=== PATIENT | female | born 1980 | race Two or more races ===

== ENCOUNTER 2021-06-07 21:23 | Emergency (ER) | payer MEDICAID ==
[~2021-06-07] VITALS: Ht 162.6 cm; Wt 72.7 kg
[2021-06-07 23:11] LABS: AMPHET/METH SCREEN,URINE POSITIVE (NEGATIVE); BARBITURATE SCREEN, URINE NEGATIVE (NEGATIVE); BENZODIAZEPINES SCREEN,URINE NEGATIVE (NEGATIVE); CANNABINOID SCREEN,URINE NEGATIVE (NEGATIVE); COCAINE SCREEN,URINE NEGATIVE (NEGATIVE); METHADONE SCREEN, URINE NEGATIVE (NEGATIVE); OPIATE SCREEN,URINE NEGATIVE (NEGATIVE); PHENCYCLIDINE SCREEN,URINE NEGATIVE (NEGATIVE)
[2021-06-08 01:36] VITALS: BP 110/75
== END 2021-06-08 01:50 | disposition home or self-care (01) ==
LOC: EMS 21:30
DX: S00.03XA Contusion of scalp, initial encounter (principal); F17.210 Nicotine dependence, cigarettes, uncomplicated; F12.90 Cannabis use, unspecified, uncomplicated; F19.90 Other psychoactive substance use, unspecified, uncomplicated; Y04.2XXA Assault by strike against or bumped into by another person, initial encounter; Y93.89 Activity, other specified; Y92.89 Other specified places as the place of occurrence of the external cause; Y99.8 Other external cause status
CPT/HCPCS: 70450; 72125; 84703; 99284

== ENCOUNTER 2022-05-22 21:33 | Emergency (ER) | payer MEDICAID ==
[~2022-05-22] VITALS: Ht 167.6 cm; Wt 55.0 kg
[2022-05-22 23:23] LABS: BASOPHILS % (AUTO) 0.5 % (0.0-2.0); EOSINOPHILS % (AUTO) 1.6 % (1.0-6.0); HEMATOCRIT 38.7 % (36-46); HEMOGLOBIN 12.6 g/dL (12.0-16.0); LYMPHOCYTES # (AUTO) 2.5 K/uL (1.0-4.8); LYMPHOCYTES % (AUTO) 27.7 % (22.0-44.0); MEAN CORPUSCULAR HEMOGLOBIN 28.4 pg (26.0-34.0); MEAN CORPUSCULAR HGB CONC 32.4 G/dL (31.0-37.0); MEAN CORPUSCULAR VOLUME 88 fL (80-100); MONOCYTES # (AUTO) 0.6 K/uL (0.1-1.0); MONOCYTES % (AUTO) 6.3 % (2.0-9.0); NEUTROPHILS # (AUTO) 5.7 K/uL (1.8-7.7); NEUTROPHILS % (AUTO) 63.9 % (40.0-70.0); PLATELET COUNT (AUTO) 395 K/uL (150-450); RED BLOOD CELL COUNT(AUTO) 4.41 MIL/uL (4.00-5.20); RED CELL DISTRIBUTION WIDTH 14.6 % (11.5-14.5)
[2022-05-22 23:32] LABS: ANION GAP 4 mmol/L (8-16); CARBON DIOXIDE 33 mmol/L (22-29); CHLORIDE 103 mmol/L (98-107); CREATININE 1.09 mg/dL (0.60-1.30); GLUCOSE,RANDOM 91 mg/dL (70-110); POTASSIUM 3.4 mmol/L (3.5-5.1); SODIUM SERUM 140 mmol/L (136-145); UREA NITROGEN, BLOOD 15 mg/dL (7-18)
[2022-05-22 23:33] LABS: GLOMERULAR FILTR. RATE CALC 55 mL/min (>60)
[2022-05-22 23:34] LABS: AMPHET/METH SCREEN,URINE NEGATIVE (NEGATIVE); BARBITURATE SCREEN, URINE NEGATIVE (NEGATIVE); BENZODIAZEPINES SCREEN,URINE NEGATIVE (NEGATIVE); CANNABINOID SCREEN,URINE NEGATIVE (NEGATIVE); COCAINE SCREEN,URINE NEGATIVE (NEGATIVE); METHADONE SCREEN, URINE NEGATIVE (NEGATIVE); OPIATE SCREEN,URINE NEGATIVE (NEGATIVE)
[2022-05-22 23:35] LABS: PHENCYCLIDINE SCREEN,URINE NEGATIVE (NEGATIVE)
[2022-05-22 23:37] LABS: ALANINE AMINOTRANSFERASE 26 U/L (12-78); ALBUMIN 3.4 g/dL (3.4-5.0); ALKALINE PHOSPHATASE 155 U/L (46-116); ASPARTATE AMINOTRANSFERASE 21 U/L (15-37); BILIRUBIN,TOTAL 0.1 mg/dL (0.1-1.0); TOTAL PROTEIN, SERUM 8.3 g/dL (6.4-8.2)
[2022-05-23 05:53] VITALS: BP 124/82
== END 2022-05-23 06:09 | disposition home or self-care (01) ==
LOC: EMS 21:33
DX: R45.1 Restlessness and agitation (principal); F32.A Depression, unspecified; F17.210 Nicotine dependence, cigarettes, uncomplicated; F12.90 Cannabis use, unspecified, uncomplicated; F15.90 Other stimulant use, unspecified, uncomplicated; F10.90 Alcohol use, unspecified, uncomplicated; M41.9 Scoliosis, unspecified
CPT/HCPCS: 99285; 80053; 84703; 85025; 36415; 80307 ×2; G0480

== ENCOUNTER 2022-10-01 08:40 | Inpatient (IN) | payer MEDICAID ==
[~2022-10-01] VITALS: Ht 160 cm; Wt 58.3 kg
[2022-10-01] MEDS ORDERED: LORazepam 2 MG/ML VIAL IM ONE (12:30)
[2022-10-01] MEDS ORDERED: DiphenhydrAMINE HCL 50 MG/ML VIAL IM ONE (12:30)
[2022-10-01] MEDS ORDERED: HALOPERIDOL LACTATE 5 MG/ML VIAL IM ONE (12:30)
[2022-10-01] MEDS ORDERED: ZOLPIDEM TARTRATE 10 MG TABLET PO PRN (13:00)
[2022-10-01] MEDS ORDERED: LORazepam 2 MG TABLET PO PRN (13:00)
[2022-10-01] MEDS ORDERED: HALOPERIDOL 5 MG TABLET PO PRN (13:00)
[2022-10-01 13:13] LABS: COVID AG,FIA SOURCE NASAL SWAB
[2022-10-01 14:04] LABS: BASOPHILS % (AUTO) 0.9 % (0.0-2.0); EOSINOPHILS % (AUTO) 0.4 % (1.0-6.0); HEMOGLOBIN 12.2 g/dL (12.0-16.0); LYMPHOCYTES # (AUTO) 3.3 K/uL (1.0-4.8); LYMPHOCYTES % (AUTO) 21.9 % (22.0-44.0); MEAN CORPUSCULAR HEMOGLOBIN 28.7 pg (26.0-34.0); MEAN CORPUSCULAR HGB CONC 33.1 G/dL (31.0-37.0); MEAN CORPUSCULAR VOLUME 87 fL (80-100); MONOCYTES # (AUTO) 1.1 K/uL (0.1-1.0); MONOCYTES % (AUTO) 7.5 % (2.0-9.0); NEUTROPHILS # (AUTO) 10.3 K/uL (1.8-7.7); NEUTROPHILS % (AUTO) 69.3 % (40.0-70.0); PLATELET COUNT (AUTO) 384 K/uL (150-450); RED BLOOD CELL COUNT(AUTO) 4.26 MIL/uL (4.00-5.20); RED CELL DISTRIBUTION WIDTH 15.4 % (11.5-14.5)
[2022-10-01 14:14] LABS: ANION GAP 3 mmol/L (8-16); CALCIUM, TOTAL 8.8 mg/dL (8.8-10.5); CARBON DIOXIDE 28 mmol/L (22-29); CHLORIDE 102 mmol/L (98-107); CREATININE 0.84 mg/dL (0.60-1.30); GLOMERULAR FILTR. RATE CALC > 60 mL/min (>60); GLUCOSE,RANDOM 72 mg/dL (70-110); POTASSIUM 3.8 mmol/L (3.5-5.1); SODIUM SERUM 133 mmol/L (136-145)
[2022-10-01 14:20] LABS: ALANINE AMINOTRANSFERASE 49 U/L (12-78); ALBUMIN 3.7 g/dL (3.4-5.0); ALKALINE PHOSPHATASE 142 U/L (46-116); ASPARTATE AMINOTRANSFERASE 71 U/L (15-37); BILIRUBIN,TOTAL 1.1 mg/dL (0.1-1.0); TOTAL PROTEIN, SERUM 7.9 g/dL (6.4-8.2)
[2022-10-01 18:11] VITALS: BP 94/58; PULSE 94; RESP 16; TEMP 97.6; O2SAT 98
[2022-10-01] MEDS ORDERED: PNEUMOCOCCAL VACCINE POLYVALENT 0.5 ML VIAL [PPSV23] IM. ONE (18:30)
[2022-10-01 20:02] VITALS: BP 102/76; PULSE 92; RESP 18; TEMP 97.1; O2SAT 97
[2022-10-02 08:33] VITALS: BP 93/53; PULSE 95; RESP 17; TEMP 98; O2SAT 96
[2022-10-02] MEDS: ESCITALOPRAM OXALATE 10 MG TABLET PO SCH (12:45)
[2022-10-02] MEDS ORDERED: DOCUSATE SODIUM 100 MG CAPSULE PO PRN (15:45)
[2022-10-02] MEDS ORDERED: LOPERAMIDE HCL 2 MG CAPSULE PO PRN (15:45)
[2022-10-02] MEDS ORDERED: ALBUTEROL SULFATE HFA 90 MCG/PUFF 8 GM INHALER IH PRN (15:45)
[2022-10-02] MEDS ORDERED: MAGNESIUM HYDROXIDE SUSPENSION 30 ML UDCUP PO PRN (15:45)
[2022-10-02] MEDS ORDERED: GuaiFENesin/D-METHORPHAN [SUGAR-FREE] 200-20MG/10 ML SYRUP UDCUP PO PRN (15:45)
[2022-10-02] MEDS ORDERED: PETROLATUM,WHITE 28 GM JELLY TP PRN (15:45)
[2022-10-02] MEDS ORDERED: CloNIDine HCL 0.1 MG TABLET PO PRN (15:45)
[2022-10-02] MEDS ORDERED: MAG HYDROX/AL HYDROX/SIMETH ES 30 ML SUSPENSION UDCUP PO PRN (15:45)
[2022-10-02] MEDS ORDERED: ACETAMINOPHEN 325 MG TABLET PO PRN (15:45)
[2022-10-02] MEDS ORDERED: ONDANSETRON HCL 4 MG TABLET PO PRN (15:45)
[2022-10-02] MEDS ORDERED: NICOTINE 14 MG/24 HOUR PATCH TD PRN (15:45)
[2022-10-02] MEDS: QUEtiapine FUMARATE 25 MG TABLET PO SCH (16:33)
[2022-10-02 20:42] VITALS: RESP 18
[2022-10-03 08:30] VITALS: RESP 18; TEMP 97.8
[2022-10-03] MEDS: QUEtiapine FUMARATE 25 MG TABLET PO SCH ×2 (09:41→16:44)
[2022-10-03] MEDS: ESCITALOPRAM OXALATE 10 MG TABLET PO SCH (09:41)
[2022-10-03 20:23] VITALS: BP 116/72; PULSE 76; RESP 18; TEMP 98.1
[2022-10-04] MEDS: ESCITALOPRAM OXALATE 10 MG TABLET PO SCH (08:34)
[2022-10-04] MEDS: QUEtiapine FUMARATE 25 MG TABLET PO SCH ×2 (08:34→17:15)
[2022-10-04 10:10] VITALS: BP 106/67; PULSE 87; RESP 16; TEMP 97.1; O2SAT 97
[2022-10-04 20:09] VITALS: BP 100/69; PULSE 79; RESP 18; TEMP 97.3; O2SAT 95
[2022-10-05] MEDS: ESCITALOPRAM OXALATE 10 MG TABLET PO SCH (08:16)
[2022-10-05] MEDS: QUEtiapine FUMARATE 25 MG TABLET PO SCH ×2 (08:16→16:38)
[2022-10-05 08:52] LABS: BASOPHILS % (AUTO) 0.7 % (0.0-2.0); EOSINOPHILS % (AUTO) 2.8 % (1.0-6.0); HEMATOCRIT 40.7 % (36-46); LYMPHOCYTES # (AUTO) 1.8 K/uL (1.0-4.8); LYMPHOCYTES % (AUTO) 23.5 % (22.0-44.0); MEAN CORPUSCULAR VOLUME 88 fL (80-100); MONOCYTES # (AUTO) 0.4 K/uL (0.1-1.0); MONOCYTES % (AUTO) 4.6 % (2.0-9.0); NEUTROPHILS # (AUTO) 5.2 K/uL (1.8-7.7); NEUTROPHILS % (AUTO) 68.4 % (40.0-70.0); PLATELET COUNT (AUTO) 412 K/uL (150-450); RED BLOOD CELL COUNT(AUTO) 4.65 MIL/uL (4.00-5.20); RED CELL DISTRIBUTION WIDTH 15.5 % (11.5-14.5)
[2022-10-05 09:32] VITALS: BP 100/61; PULSE 76; RESP 18; TEMP 94.7; O2SAT 98
[2022-10-05 21:33] VITALS: BP 118/72; PULSE 80; RESP 17; TEMP 97.2; O2SAT 99
[2022-10-06] MEDS: QUEtiapine FUMARATE 25 MG TABLET PO SCH ×2 (08:40→16:36)
[2022-10-06] MEDS: ESCITALOPRAM OXALATE 10 MG TABLET PO SCH (08:40)
[2022-10-06 08:43] VITALS: BP 103/68; PULSE 70; RESP 18; TEMP 98
[2022-10-06] MEDS: IBUPROFEN 400 MG TABLET PO PRN ×2 (08:43→17:30)
[2022-10-06 08:49] VITALS: BP 103/68; PULSE 70; RESP 18; TEMP 98; O2SAT 98
[2022-10-06 09:43] VITALS: BP 111/71; PULSE 76; RESP 17; TEMP 98.2
[2022-10-06 17:30] VITALS: BP 131/77; PULSE 81; RESP 17; TEMP 98.3
[2022-10-06 18:30] VITALS: BP 121/78; PULSE 71; RESP 18; TEMP 98
[2022-10-06 20:30] VITALS: BP 120/70; PULSE 80; RESP 18; TEMP 97.7
[2022-10-07 08:24] VITALS: BP 103/63; PULSE 61; RESP 18; TEMP 97.7
[2022-10-07] MEDS: ESCITALOPRAM OXALATE 10 MG TABLET PO SCH (09:07)
[2022-10-07] MEDS: QUEtiapine FUMARATE 25 MG TABLET PO SCH ×2 (09:07→16:09)
[2022-10-07] MEDS: IBUPROFEN 400 MG TABLET PO PRN (16:12)
[2022-10-07 21:34] VITALS: BP 118/71; PULSE 72; RESP 18; TEMP 98
[2022-10-08 08:45] VITALS: BP 99/62; PULSE 68; RESP 17; TEMP 97.6; O2SAT 96
[2022-10-08] MEDS: QUEtiapine FUMARATE 25 MG TABLET PO SCH ×2 (09:24→16:33)
[2022-10-08] MEDS: MULTIVITAMINS WITH MINERALS, THERAPEUTIC TABLET PO SCH (09:24)
[2022-10-08] MEDS: ESCITALOPRAM OXALATE 10 MG TABLET PO SCH (09:24)
[2022-10-08 21:05] VITALS: BP 108/71; PULSE 73; RESP 19; TEMP 98.1; O2SAT 98
[2022-10-09] MEDS: QUEtiapine FUMARATE 25 MG TABLET PO SCH ×2 (08:19→16:01)
[2022-10-09] MEDS: ESCITALOPRAM OXALATE 10 MG TABLET PO SCH (08:19)
[2022-10-09] MEDS: MULTIVITAMINS WITH MINERALS, THERAPEUTIC TABLET PO SCH (08:19)
[2022-10-09 08:29] VITALS: BP 106/65; PULSE 77; RESP 16; TEMP 97.4; O2SAT 98
[2022-10-09 10:32] VITALS: BP 106/65; PULSE 77; RESP 16; TEMP 97.4
[2022-10-09] MEDS: IBUPROFEN 400 MG TABLET PO PRN (10:32)
[2022-10-09 11:32] VITALS: BP 111/71; PULSE 81; RESP 17; TEMP 98
[2022-10-09] MEDS ORDERED: QUET25TA36 PO (11:42)
[2022-10-09] MEDS ORDERED: ESCI10 PO (11:42)
== END 2022-10-09 15:45 | disposition left against medical advice (07) | DRG 750 ==
LOC: EMS 08:45 → 3EC 17:16
PROVIDERS: ADMIT Psychiatry & Neurology Child & Adolescent Psychiatry; ATTEND Psychiatry & Neurology Child & Adolescent Psychiatry
DX: F20.0 Paranoid schizophrenia (principal); E87.1 Hypo-osmolality and hyponatremia; F32.A Depression, unspecified; Z20.822 Contact with and (suspected) exposure to COVID-19; G47.00 Insomnia, unspecified; M41.9 Scoliosis, unspecified; D72.829 Elevated white blood cell count, unspecified; Z53.21 Procedure and treatment not carried out due to patient leaving prior to being seen by health care provider; F19.10 Other psychoactive substance abuse, uncomplicated; Z87.891 Personal history of nicotine dependence
CPT/HCPCS: 80053; 85025; 87430; 99285; G0480; J1200; J1630; J2060; J3535

== ENCOUNTER 2023-01-07 11:56 | Emergency (ER) | payer MEDICAID ==
[~2023-01-07] VITALS: Ht 162.6 cm; Wt 59.1 kg
[~2023-01-07 11:56] MED LIST: ESCI10 PO; QUET25TA36 PO
[2023-01-07 12:03] VITALS: TEMP 97.9
[2023-01-07] MEDS ORDERED: SODIUM CHLORIDE 0.9% 1,000 ML IV ONE (12:45)
[2023-01-07 13:33] LABS: BASOPHILS % (AUTO) 0.6 % (0.0-2.0); HEMATOCRIT 41.8 % (36-46); HEMOGLOBIN 13.8 g/dL (12.0-16.0); LYMPHOCYTES % (AUTO) 29.7 % (22.0-44.0); MEAN CORPUSCULAR VOLUME 88 fL (80-100); MONOCYTES # (AUTO) 0.6 K/uL (0.1-1.0); MONOCYTES % (AUTO) 6.1 % (2.0-9.0); NEUTROPHILS # (AUTO) 6.2 K/uL (1.8-7.7); NEUTROPHILS % (AUTO) 62.6 % (40.0-70.0); PLATELET COUNT (AUTO) 371 K/uL (150-450); RED BLOOD CELL COUNT(AUTO) 4.75 MIL/uL (4.00-5.20)
[2023-01-07 13:45] LABS: ANION GAP 7 mmol/L (8-16); CALCIUM, TOTAL 9.1 mg/dL (8.8-10.5); CARBON DIOXIDE 28 mmol/L (22-29); CHLORIDE 104 mmol/L (98-107); CREATININE 0.89 mg/dL (0.60-1.30); GLOMERULAR FILTR. RATE CALC > 60 mL/min (>60); GLUCOSE,RANDOM 76 mg/dL (70-110); PROTHROMBIN TIME 10.5 SEC (9.4-11.6); SODIUM SERUM 139 mmol/L (136-145); UREA NITROGEN, BLOOD 20 mg/dL (7-18)
[2023-01-07 13:51] LABS: ALANINE AMINOTRANSFERASE 16 U/L (12-78); ALBUMIN 3.5 g/dL (3.4-5.0); ALKALINE PHOSPHATASE 151 U/L (46-116); ASPARTATE AMINOTRANSFERASE 21 U/L (15-37); BILIRUBIN,TOTAL 0.5 mg/dL (0.1-1.0); TOTAL PROTEIN, SERUM 7.6 g/dL (6.4-8.2)
[2023-01-07 13:55] LABS: B-TYPE NATRIURETIC PEPTIDE 37 pg/mL (0-100)
[2023-01-07 13:56] LABS: TROPONIN I-HIGH SENSITIVITY Less Than 4 ng/L (<51)
[2023-01-07 16:28] LABS: APPEARANCE,URINE CLEAR (CLEAR); BILIRUBIN,URINE NEGATIVE (NEGATIVE); COLOR,URINE LIGHT YELLOW (YELLOW); GLUCOSE, URINE (UA) NEGATIVE (NEGATIVE); KETONES,URINE NEGATIVE (NEGATIVE); LEUKOCYTE ESTERASE ,URINE NEGATIVE (NEGATIVE); NITRATE,URINE NEGATIVE (NEGATIVE); OCCULT BLOOD,URINE NEGATIVE (NEGATIVE); PROTEIN,URINE NEGATIVE (NEGATIVE); SPECIFIC GRAVITIY, URINE 1.018 (1.003-1.030); UROBILINOGEN,URINE <=1.0 mg/dL (<=1.0)
[2023-01-07] MEDS ORDERED: ESCI-8 PO (16:34)
[2023-01-07] MEDS ORDERED: QUET25TA PO (16:34)
[2023-01-07] MEDS ORDERED: HYDR28.35 TP (16:35)
[2023-01-07 16:41] LABS: ALCOHOL, URINE DRUG SCREEN NEGATIVE (NEGATIVE); AMPHET/METH SCREEN,URINE NEGATIVE (NEGATIVE); BARBITURATE SCREEN, URINE NEGATIVE (NEGATIVE); BENZODIAZEPINES SCREEN,URINE NEGATIVE (NEGATIVE); CANNABINOID SCREEN,URINE NEGATIVE (NEGATIVE); COCAINE SCREEN,URINE NEGATIVE (NEGATIVE); METHADONE SCREEN, URINE NEGATIVE (NEGATIVE); OPIATE SCREEN,URINE NEGATIVE (NEGATIVE); PHENCYCLIDINE SCREEN,URINE NEGATIVE (NEGATIVE)
[2023-01-07 17:06] VITALS: BP 104/72; PULSE 80; RESP 16
== END 2023-01-07 17:05 | disposition home or self-care (01) ==
LOC: EMS 12:00
DX: E86.0 Dehydration (principal); R42 Dizziness and giddiness; F32.A Depression, unspecified; F20.9 Schizophrenia, unspecified; F12.90 Cannabis use, unspecified, uncomplicated; F15.90 Other stimulant use, unspecified, uncomplicated
CPT/HCPCS: 99285; 96360; 71045; 80053; 83880; 84484; 85025; 85610; 85730; 36415; 93005; 80307; 81003; G0480

== ENCOUNTER 2023-01-26 15:09 | Inpatient (IN) | payer MEDICAID ==
[~2023-01-26] VITALS: Ht 160 cm; Wt 64.0 kg
[~2023-01-26 15:09] MED LIST changes: +ESCI-8 PO; +HYDR28.35 TP; +QUET25TA PO
[2023-01-26 15:46] LABS: BASOPHILS % (AUTO) 0.6 % (0.0-2.0); EOSINOPHILS % (AUTO) 2.1 % (1.0-6.0); HEMATOCRIT 36.8 % (36-46); HEMOGLOBIN 11.9 g/dL (12.0-16.0); LYMPHOCYTES # (AUTO) 2.3 K/uL (1.0-4.8); LYMPHOCYTES % (AUTO) 28.6 % (22.0-44.0); MEAN CORPUSCULAR HEMOGLOBIN 29.3 pg (26.0-34.0); MEAN CORPUSCULAR HGB CONC 32.3 G/dL (31.0-37.0); MEAN CORPUSCULAR VOLUME 91 fL (80-100); MONOCYTES # (AUTO) 0.5 K/uL (0.1-1.0); MONOCYTES % (AUTO) 6.5 % (2.0-9.0); NEUTROPHILS # (AUTO) 4.9 K/uL (1.8-7.7); NEUTROPHILS % (AUTO) 62.2 % (40.0-70.0); PLATELET COUNT (AUTO) 352 K/uL (150-450); RED BLOOD CELL COUNT(AUTO) 4.06 MIL/uL (4.00-5.20); RED CELL DISTRIBUTION WIDTH 15.5 % (11.5-14.5); WHITE BLOOD COUNT (AUTO) 7.9 K/uL (4.5-11.0)
[2023-01-26 15:52] LABS: COVID AG,FIA SOURCE NASAL SWAB
[2023-01-26 15:55] LABS: ANION GAP 11 mmol/L (8-16); CALCIUM, TOTAL 9.1 mg/dL (8.8-10.5); CARBON DIOXIDE 26 mmol/L (22-29); CHLORIDE 106 mmol/L (98-107); CREATININE 0.68 mg/dL (0.60-1.30); GLOMERULAR FILTR. RATE CALC > 60 mL/min (>60); GLUCOSE,RANDOM 81 mg/dL (70-110); POTASSIUM 3.6 mmol/L (3.5-5.1); SODIUM SERUM 143 mmol/L (136-145); UREA NITROGEN, BLOOD 16 mg/dL (7-18)
[2023-01-26 16:00] LABS: ALANINE AMINOTRANSFERASE 45 U/L (12-78); ALBUMIN 3.6 g/dL (3.4-5.0); ALKALINE PHOSPHATASE 121 U/L (46-116); ASPARTATE AMINOTRANSFERASE 43 U/L (15-37); BILIRUBIN,TOTAL 0.6 mg/dL (0.1-1.0); TOTAL PROTEIN, SERUM 7.2 g/dL (6.4-8.2)
[2023-01-26 16:01] LABS: ALCOHOL, BLOOD (SERUM) < 3 mg/dL (0-10)
[2023-01-26 16:14] LABS: SARS-COV2 (COVID) ANTIGEN,FIA Negative (Negative)
[2023-01-26] MEDS ORDERED: DiphenhydrAMINE HCL 25 MG CAPSULE PO ONE (16:45)
[2023-01-26] MEDS ORDERED: HALOPERIDOL 5 MG TABLET PO ONE (16:45)
[2023-01-26] MEDS ORDERED: LORazepam 2 MG TABLET PO ONE (16:45)
[2023-01-26] MEDS: ACETAMINOPHEN 325 MG TABLET PO PRN (20:05)
[2023-01-26 20:14] LABS: PH,URINE DRUG SCREEN 5.5 (5.0-8.0)
[2023-01-26 20:20] LABS: ALCOHOL, URINE DRUG SCREEN NEGATIVE (NEGATIVE); AMPHET/METH SCREEN,URINE NEGATIVE (NEGATIVE); BARBITURATE SCREEN, URINE NEGATIVE (NEGATIVE); BENZODIAZEPINES SCREEN,URINE NEGATIVE (NEGATIVE); CANNABINOID SCREEN,URINE NEGATIVE (NEGATIVE); COCAINE SCREEN,URINE NEGATIVE (NEGATIVE); METHADONE SCREEN, URINE NEGATIVE (NEGATIVE); OPIATE SCREEN,URINE NEGATIVE (NEGATIVE); PHENCYCLIDINE SCREEN,URINE NEGATIVE (NEGATIVE)
[2023-01-27] MEDS: ZOLPIDEM TARTRATE 10 MG TABLET PO PRN (21:37)
[2023-01-27 22:11] VITALS: BP 98/68; PULSE 78; RESP 16; TEMP 98.2
[2023-01-28] MEDS ORDERED: INFLUENZA VIRUS VACCINE QVS 2023-24 (6MO+)/PF 60 MCG/0.5 ML SYRINGE IM. ONE (02:30)
[2023-01-28] MEDS ORDERED: DOCUSATE SODIUM 100 MG CAPSULE PO PRN (07:00)
[2023-01-28] MEDS ORDERED: NICOTINE 14 MG/24 HOUR PATCH TD PRN (07:00)
[2023-01-28] MEDS ORDERED: LOPERAMIDE HCL 2 MG CAPSULE PO PRN (07:00)
[2023-01-28] MEDS ORDERED: CloNIDine HCL 0.1 MG TABLET PO PRN (07:00)
[2023-01-28] MEDS ORDERED: GuaiFENesin/D-METHORPHAN [SUGAR-FREE] 200-20MG/10 ML SYRUP UDCUP PO PRN (07:00)
[2023-01-28] MEDS ORDERED: IBUPROFEN 400 MG TABLET PO PRN (07:00)
[2023-01-28] MEDS ORDERED: PETROLATUM,WHITE 28 GM JELLY TP PRN (07:00)
[2023-01-28] MEDS ORDERED: ONDANSETRON HCL 4 MG TABLET PO PRN (07:00)
[2023-01-28] MEDS ORDERED: MAGNESIUM HYDROXIDE SUSPENSION 30 ML UDCUP PO PRN (07:00)
[2023-01-28] MEDS: HYDROCORTISONE 2.5% 30 GM OINTMENT TP SCH ×2 (09:00→16:37)
[2023-01-28] MEDS: LORazepam 2 MG TABLET PO PRN ×2 (11:17→17:38)
[2023-01-28] MEDS: HALOPERIDOL 5 MG TABLET PO PRN (11:17)
[2023-01-28] MEDS: QUEtiapine FUMARATE 25 MG TABLET PO SCH (16:37)
[2023-01-28] MEDS: ESCITALOPRAM OXALATE 10 MG TABLET PO SCH (16:37)
[2023-01-28 20:26] VITALS: BP 109/65; PULSE 95; RESP 22; TEMP 97.6; O2SAT 98
[2023-01-29 03:37] VITALS: RESP 18; TEMP 97.5
[2023-01-29] MEDS: QUEtiapine FUMARATE 25 MG TABLET PO SCH ×2 (08:16→17:05)
[2023-01-29] MEDS: ESCITALOPRAM OXALATE 10 MG TABLET PO SCH (08:16)
[2023-01-29] MEDS: HYDROCORTISONE 2.5% 30 GM OINTMENT TP SCH ×2 (08:17→17:13)
[2023-01-29 08:29] LABS: HEMOGLOBIN A1C 5.1 % (3.8-5.6)
[2023-01-29 08:37] VITALS: BP 100/73; PULSE 79; RESP 18; TEMP 97.8; O2SAT 95
[2023-01-29 08:49] LABS: CHOL/HDL RATIO 3.2 (3.9-5.7); THYROID STIMULATING HORMONE 1.14 uIU/mL (0.36-3.74)
[2023-01-29 20:25] VITALS: BP 100/63; PULSE 76; RESP 18; TEMP 97.6; O2SAT 98
[2023-01-30 08:52] VITALS: BP 102/67; PULSE 64; RESP 16; TEMP 97.6; O2SAT 98
[2023-01-30] MEDS: ESCITALOPRAM OXALATE 10 MG TABLET PO SCH (09:37)
[2023-01-30] MEDS: HYDROCORTISONE 2.5% 30 GM OINTMENT TP SCH ×2 (09:37→17:19)
[2023-01-30] MEDS: QUEtiapine FUMARATE 25 MG TABLET PO SCH ×2 (09:37→17:19)
[2023-01-30] MEDS: ZOLPIDEM TARTRATE 10 MG TABLET PO PRN (21:01)
[2023-01-30 22:16] VITALS: BP 106/66; PULSE 20; RESP 18; TEMP 97.5
[2023-01-30] MEDS: ALBUTEROL SULFATE HFA 90 MCG/PUFF 8 GM INHALER IH PRN (23:45)
[2023-01-31 08:03] LABS: APPEARANCE,URINE CLEAR (CLEAR); BILIRUBIN,URINE NEGATIVE (NEGATIVE); COLOR,URINE COLORLESS (YELLOW); GLUCOSE, URINE (UA) NEGATIVE (NEGATIVE); KETONES,URINE NEGATIVE (NEGATIVE); LEUKOCYTE ESTERASE ,URINE NEGATIVE (NEGATIVE); NITRATE,URINE NEGATIVE (NEGATIVE); OCCULT BLOOD,URINE NEGATIVE (NEGATIVE); PROTEIN,URINE NEGATIVE (NEGATIVE); SPECIFIC GRAVITIY, URINE 1.009 (1.003-1.030); UROBILINOGEN,URINE <=1.0 mg/dL (<=1.0)
[2023-01-31 08:18] LABS: ALCOHOL, URINE DRUG SCREEN NEGATIVE (NEGATIVE); AMPHET/METH SCREEN,URINE NEGATIVE (NEGATIVE); BARBITURATE SCREEN, URINE NEGATIVE (NEGATIVE); BENZODIAZEPINES SCREEN,URINE NEGATIVE (NEGATIVE); CANNABINOID SCREEN,URINE NEGATIVE (NEGATIVE); COCAINE SCREEN,URINE NEGATIVE (NEGATIVE); METHADONE SCREEN, URINE NEGATIVE (NEGATIVE); OPIATE SCREEN,URINE NEGATIVE (NEGATIVE); PHENCYCLIDINE SCREEN,URINE NEGATIVE (NEGATIVE)
[2023-01-31 08:50] VITALS: BP 105/77; PULSE 74; RESP 17; TEMP 97.3; O2SAT 99
[2023-01-31] MEDS: ESCITALOPRAM OXALATE 10 MG TABLET PO SCH (10:25)
[2023-01-31] MEDS: QUEtiapine FUMARATE 25 MG TABLET PO SCH ×2 (10:25→16:54)
[2023-01-31] MEDS: HYDROCORTISONE 2.5% 30 GM OINTMENT TP SCH ×2 (10:26→16:54)
[2023-01-31] MEDS: ZOLPIDEM TARTRATE 10 MG TABLET PO PRN (20:21)
[2023-01-31] MEDS: ALBUTEROL SULFATE HFA 90 MCG/PUFF 8 GM INHALER IH PRN (20:21)
[2023-01-31 23:03] VITALS: BP 110/70; PULSE 65; RESP 18; TEMP 97.5; O2SAT 98
[2023-02-01 08:05] VITALS: BP 118/72; PULSE 68; RESP 16; TEMP 98.4; O2SAT 97
[2023-02-01] MEDS: HYDROCORTISONE 2.5% 30 GM OINTMENT TP SCH ×2 (08:40→17:14)
[2023-02-01] MEDS: QUEtiapine FUMARATE 25 MG TABLET PO SCH ×2 (08:40→17:14)
[2023-02-01] MEDS: ESCITALOPRAM OXALATE 10 MG TABLET PO SCH (08:40)
[2023-02-01] MEDS: ALBUTEROL SULFATE HFA 90 MCG/PUFF 8 GM INHALER IH PRN (11:15)
[2023-02-01] MEDS: ZOLPIDEM TARTRATE 10 MG TABLET PO PRN (20:24)
[2023-02-01 20:43] VITALS: BP 103/61; PULSE 67; RESP 18; TEMP 97.9; O2SAT 97
[2023-02-02 08:37] VITALS: BP 105/72; PULSE 87; RESP 18; TEMP 97.7; O2SAT 98
[2023-02-02] MEDS: ESCITALOPRAM OXALATE 10 MG TABLET PO SCH (09:46)
[2023-02-02] MEDS: HYDROCORTISONE 2.5% 30 GM OINTMENT TP SCH ×2 (09:46→17:20)
[2023-02-02] MEDS: QUEtiapine FUMARATE 25 MG TABLET PO SCH ×2 (09:46→17:19)
[2023-02-02] MEDS: ALBUTEROL SULFATE HFA 90 MCG/PUFF 8 GM INHALER IH PRN ×2 (10:12→21:33)
[2023-02-02] MEDS: ZOLPIDEM TARTRATE 10 MG TABLET PO PRN (21:33)
[2023-02-02 22:24] VITALS: BP 101/80; PULSE 66; RESP 18; TEMP 97.4; O2SAT 99
[2023-02-03] MEDS: ESCITALOPRAM OXALATE 10 MG TABLET PO SCH (09:31)
[2023-02-03] MEDS: QUEtiapine FUMARATE 25 MG TABLET PO SCH ×2 (09:32→16:24)
[2023-02-03] MEDS: HYDROCORTISONE 2.5% 30 GM OINTMENT TP SCH ×2 (09:32→16:25)
[2023-02-03] MEDS: ALBUTEROL SULFATE HFA 90 MCG/PUFF 8 GM INHALER IH PRN (10:28)
[2023-02-03 10:55] VITALS: BP 103/66; PULSE 88; RESP 17; TEMP 97.8; O2SAT 100
[2023-02-03 20:29] VITALS: BP 99/63; PULSE 75; RESP 18; TEMP 98.1; O2SAT 96
[2023-02-04] MEDS: ALBUTEROL SULFATE HFA 90 MCG/PUFF 8 GM INHALER IH PRN ×2 (06:52→18:29)
[2023-02-04 08:35] VITALS: BP 100/61; PULSE 77; RESP 18; TEMP 97.8; O2SAT 98
[2023-02-04] MEDS: ESCITALOPRAM OXALATE 10 MG TABLET PO SCH (09:26)
[2023-02-04] MEDS: QUEtiapine FUMARATE 25 MG TABLET PO SCH ×2 (09:26→16:34)
[2023-02-04] MEDS: HYDROCORTISONE 2.5% 30 GM OINTMENT TP SCH ×2 (09:27→16:35)
[2023-02-04 22:06] VITALS: BP 100/72; PULSE 69; RESP 16; TEMP 97.7; O2SAT 95
[2023-02-04] MEDS: HALOPERIDOL 5 MG TABLET PO PRN (22:55)
[2023-02-04] MEDS: ACETAMINOPHEN 325 MG TABLET PO PRN (22:56)
[2023-02-05 08:42] VITALS: BP 119/61; PULSE 70; RESP 18; TEMP 97.8; O2SAT 96
[2023-02-05] MEDS: ESCITALOPRAM OXALATE 10 MG TABLET PO SCH (08:43)
[2023-02-05] MEDS: HYDROCORTISONE 2.5% 30 GM OINTMENT TP SCH ×2 (08:43→16:50)
[2023-02-05] MEDS: QUEtiapine FUMARATE 25 MG TABLET PO SCH ×2 (08:43→16:50)
[2023-02-05 11:45] VITALS: BP 101/68; PULSE 69; RESP 17; TEMP 97.7; O2SAT 98
[2023-02-05 20:56] VITALS: BP 96/63; PULSE 71; RESP 18; TEMP 97.7; O2SAT 97
[2023-02-05] MEDS: BusPIRone HCL 5 MG TABLET PO SCH (21:33)
[2023-02-06 08:24] VITALS: BP 118/59; PULSE 88; RESP 18; TEMP 97.9; O2SAT 94
[2023-02-06] MEDS: QUEtiapine FUMARATE 25 MG TABLET PO SCH ×2 (09:20→16:36)
[2023-02-06] MEDS: ESCITALOPRAM OXALATE 10 MG TABLET PO SCH (09:20)
[2023-02-06] MEDS: BusPIRone HCL 5 MG TABLET PO SCH ×2 (09:20→21:00)
[2023-02-06] MEDS: HYDROCORTISONE 2.5% 30 GM OINTMENT TP SCH ×2 (09:20→16:37)
[2023-02-06 20:38] VITALS: BP 112/61; PULSE 83; RESP 18; TEMP 97.8; O2SAT 96
[2023-02-07] MEDS: ESCITALOPRAM OXALATE 10 MG TABLET PO SCH (08:41)
[2023-02-07] MEDS: HYDROCORTISONE 2.5% 30 GM OINTMENT TP SCH ×2 (08:41→16:45)
[2023-02-07] MEDS: QUEtiapine FUMARATE 25 MG TABLET PO SCH ×2 (08:41→16:41)
[2023-02-07] MEDS: BusPIRone HCL 5 MG TABLET PO SCH ×2 (08:41→20:49)
[2023-02-07 13:16] VITALS: BP 110/64; PULSE 73; RESP 17; TEMP 97.3; O2SAT 97
[2023-02-07 20:06] VITALS: BP 121/71; PULSE 81; RESP 20; TEMP 97.6; O2SAT 96
[2023-02-08] MEDS: BusPIRone HCL 5 MG TABLET PO SCH ×2 (08:23→21:13)
[2023-02-08] MEDS: QUEtiapine FUMARATE 25 MG TABLET PO SCH ×2 (08:23→16:19)
[2023-02-08] MEDS: ESCITALOPRAM OXALATE 10 MG TABLET PO SCH (08:23)
[2023-02-08] MEDS: HYDROCORTISONE 2.5% 30 GM OINTMENT TP SCH ×2 (08:24→16:19)
[2023-02-08 08:49] VITALS: BP 100/71; PULSE 61; RESP 17; TEMP 97.7; O2SAT 97
[2023-02-08 20:16] VITALS: BP 108/65; PULSE 62; RESP 17; TEMP 97.6; O2SAT 98
[2023-02-09 08:30] VITALS: BP 100/64; PULSE 64; RESP 16; TEMP 97.6; O2SAT 97
[2023-02-09] MEDS: BusPIRone HCL 5 MG TABLET PO SCH ×2 (08:48→20:39)
[2023-02-09] MEDS: ESCITALOPRAM OXALATE 10 MG TABLET PO SCH (08:49)
[2023-02-09] MEDS: QUEtiapine FUMARATE 25 MG TABLET PO SCH ×2 (08:49→16:17)
[2023-02-09] MEDS: HYDROCORTISONE 2.5% 30 GM OINTMENT TP SCH ×2 (08:49→16:17)
[2023-02-09] MEDS: MAG HYDROX/ALUMINUM HYD/SIMETH ES 30 ML SUSPENSION UDCUP PO PRN (18:00)
[2023-02-09 20:25] VITALS: BP 101/68; PULSE 63; RESP 19; TEMP 98.2; O2SAT 97
[2023-02-10 08:40] VITALS: BP 102/69; PULSE 73; RESP 17; TEMP 97.4; O2SAT 97
[2023-02-10] MEDS: QUEtiapine FUMARATE 25 MG TABLET PO SCH ×2 (08:57→16:42)
[2023-02-10] MEDS: ESCITALOPRAM OXALATE 10 MG TABLET PO SCH (08:57)
[2023-02-10] MEDS: BusPIRone HCL 5 MG TABLET PO SCH ×2 (08:57→20:04)
[2023-02-10] MEDS: MAG HYDROX/ALUMINUM HYD/SIMETH ES 30 ML SUSPENSION UDCUP PO PRN (08:58)
[2023-02-10] MEDS: HYDROCORTISONE 2.5% 30 GM OINTMENT TP SCH ×2 (09:18→16:42)
[2023-02-10 20:16] VITALS: BP 101/62; PULSE 83; RESP 18; TEMP 97.5; O2SAT 97
[2023-02-11 09:00] VITALS: BP 100/71; PULSE 87; RESP 18; TEMP 97.8; O2SAT 97
[2023-02-11] MEDS: BusPIRone HCL 5 MG TABLET PO SCH ×2 (09:29→21:51)
[2023-02-11] MEDS: ESCITALOPRAM OXALATE 10 MG TABLET PO SCH (09:29)
[2023-02-11] MEDS: QUEtiapine FUMARATE 25 MG TABLET PO SCH ×2 (09:29→16:45)
[2023-02-11] MEDS: HYDROCORTISONE 2.5% 30 GM OINTMENT TP SCH (09:30)
[2023-02-11 20:34] VITALS: BP 95/66; PULSE 70; RESP 19; TEMP 97.3; O2SAT 100
[2023-02-12] MEDS: QUEtiapine FUMARATE 25 MG TABLET PO SCH (08:11)
[2023-02-12] MEDS: ESCITALOPRAM OXALATE 10 MG TABLET PO SCH (08:11)
[2023-02-12] MEDS: BusPIRone HCL 5 MG TABLET PO SCH (08:11)
[2023-02-12 09:07] VITALS: BP 97/81; PULSE 94; RESP 17; TEMP 97.3; O2SAT 96
[2023-02-12] MEDS ORDERED: BUSP5TAB20 PO (11:47)
[2023-02-12] MEDS ORDERED: ESCI-8 PO (12:11)
[2023-02-12] MEDS ORDERED: QUET25TA PO (12:12)
[2023-02-13] MEDS ORDERED: QUET25TA36 PO (06:35)
[2023-02-13] MEDS ORDERED: ESCI-8 PO (06:35)
[2023-02-13] MEDS ORDERED: BUSP5TAB20 PO (06:35)
== END 2023-02-12 14:30 | disposition home or self-care (01) | DRG 750 ==
LOC: EMS 15:16 → B2S 01-27 15:16
PROVIDERS: ADMIT Psychiatry & Neurology Psychiatry; ATTEND Psychiatry & Neurology Psychiatry
DX: F25.1 Schizoaffective disorder, depressive type (principal); R45.851 Suicidal ideations; D64.9 Anemia, unspecified; S00.03XA Contusion of scalp, initial encounter; F15.90 Other stimulant use, unspecified, uncomplicated; F41.9 Anxiety disorder, unspecified; Z20.822 Contact with and (suspected) exposure to COVID-19; G47.00 Insomnia, unspecified; M41.9 Scoliosis, unspecified; X58.XXXA Exposure to other specified factors, initial encounter; Y93.89 Activity, other specified; Y92.89 Other specified places as the place of occurrence of the external cause; Y99.8 Other external cause status; Z59.00 Homelessness unspecified; Z79.899 Other long term (current) drug therapy
CPT/HCPCS: 80053; 80061; 80307; 81003; 83036; 84443; 84703; 85025; 99285; G0480; J3535

== ENCOUNTER 2023-05-09 16:13 | Inpatient (IN) | payer MEDICAID ==
[~2023-05-09] VITALS: Ht 167.6 cm; Wt 59.0 kg
[~2023-05-09 16:13] MED LIST changes: +BUSP5TAB20 PO; -ESCI10 PO; -HYDR28.35 TP
[2023-05-09] MEDS ORDERED: DiphenhydrAMINE HCL 50 MG/ML VIAL IM ONE (17:15)
[2023-05-09] MEDS ORDERED: LORazepam 2 MG/ML VIAL IM ONE (17:15)
[2023-05-09] MEDS ORDERED: HALOPERIDOL LACTATE 5 MG/ML VIAL IM ONE (17:15)
[2023-05-09 17:41] LABS: COVID AG,FIA SOURCE NASAL SWAB
[2023-05-09 17:48] LABS: PH,URINE DRUG SCREEN 5.5 (5.0-8.0)
[2023-05-09 17:59] LABS: AMPHET/METH SCREEN,URINE NEGATIVE (NEGATIVE); BARBITURATE SCREEN, URINE NEGATIVE (NEGATIVE); BENZODIAZEPINES SCREEN,URINE NEGATIVE (NEGATIVE); CANNABINOID SCREEN,URINE NEGATIVE (NEGATIVE); COCAINE SCREEN,URINE NEGATIVE (NEGATIVE); METHADONE SCREEN, URINE NEGATIVE (NEGATIVE); OPIATE SCREEN,URINE NEGATIVE (NEGATIVE); PHENCYCLIDINE SCREEN,URINE NEGATIVE (NEGATIVE)
[2023-05-09 18:06] LABS: ALCOHOL, URINE DRUG SCREEN NEGATIVE (NEGATIVE)
[2023-05-09 18:37] LABS: SARS-COV2 (COVID) ANTIGEN,FIA Negative (Negative)
[2023-05-09 18:52] LABS: BASOPHILS % (AUTO) 0.6 % (0.0-2.0); EOSINOPHILS % (AUTO) 0.7 % (1.0-6.0); HEMATOCRIT 34.8 % (36-46); HEMOGLOBIN 11.5 g/dL (12.0-16.0); LYMPHOCYTES # (AUTO) 2.8 K/uL (1.0-4.8); LYMPHOCYTES % (AUTO) 29.5 % (22.0-44.0); MEAN CORPUSCULAR HEMOGLOBIN 28.7 pg (26.0-34.0); MEAN CORPUSCULAR VOLUME 87 fL (80-100); MONOCYTES # (AUTO) 0.4 K/uL (0.1-1.0); MONOCYTES % (AUTO) 4.6 % (2.0-9.0); NEUTROPHILS # (AUTO) 6.2 K/uL (1.8-7.7); NEUTROPHILS % (AUTO) 64.6 % (40.0-70.0); PLATELET COUNT (AUTO) 411 K/uL (150-450); WHITE BLOOD COUNT (AUTO) 9.6 K/uL (4.5-11.0)
[2023-05-09 19:00] LABS: ANION GAP 11 mmol/L (8-16); CARBON DIOXIDE 27 mmol/L (22-29); CHLORIDE 105 mmol/L (98-107); CREATININE 0.79 mg/dL (0.60-1.30); GLOMERULAR FILTR. RATE CALC > 60 mL/min (>60); GLUCOSE,RANDOM 100 mg/dL (70-110); POTASSIUM 4.1 mmol/L (3.5-5.1); SODIUM SERUM 143 mmol/L (136-145); UREA NITROGEN, BLOOD 23 mg/dL (7-18)
[2023-05-09 19:05] LABS: ALANINE AMINOTRANSFERASE 40 U/L (12-78); ALBUMIN 3.2 g/dL (3.4-5.0); ALKALINE PHOSPHATASE 126 U/L (46-116); ASPARTATE AMINOTRANSFERASE 28 U/L (15-37); BILIRUBIN,TOTAL 0.2 mg/dL (0.1-1.0); TOTAL PROTEIN, SERUM 6.8 g/dL (6.4-8.2)
[2023-05-09 19:36] LABS: ALCOHOL, BLOOD (SERUM) < 3 mg/dL (0-10)
[2023-05-09] MEDS ORDERED: HALOPERIDOL 5 MG TABLET PO PRN (21:15)
[2023-05-09] MEDS ORDERED: ZOLPIDEM TARTRATE 10 MG TABLET PO PRN (21:15)
[2023-05-10] MEDS ORDERED: INFLUENZA VIRUS VACCINE QVS 2023-24 (6MO+)/PF 60 MCG/0.5 ML SYRINGE IM. ONE (02:30)
[2023-05-10 02:55] VITALS: BP 97/63; PULSE 70; RESP 17; TEMP 97.7; O2SAT 98
[2023-05-10] MEDS ORDERED: MAG HYDROX/ALUMINUM HYD/SIMETH ES 30 ML SUSPENSION UDCUP PO PRN (09:45)
[2023-05-10] MEDS ORDERED: CloNIDine HCL 0.1 MG TABLET PO PRN (09:45)
[2023-05-10] MEDS ORDERED: BACITRACIN 28 GM OINTMENT TP PRN (09:45)
[2023-05-10] MEDS ORDERED: ONDANSETRON HCL 4 MG TABLET PO PRN (09:45)
[2023-05-10] MEDS ORDERED: OMEPRAZOLE 20 MG CAPSULE PO PRN (09:45)
[2023-05-10] MEDS ORDERED: IBUPROFEN 600 MG TABLET PO PRN (09:45)
[2023-05-10] MEDS ORDERED: MAGNESIUM HYDROXIDE SUSPENSION 30 ML UDCUP PO PRN (09:45)
[2023-05-10] MEDS ORDERED: ACETAMINOPHEN 325 MG TABLET PO PRN (09:45)
[2023-05-10] MEDS ORDERED: ALBUTEROL SULFATE HFA 90 MCG/PUFF 8 GM INHALER IH PRN (09:45)
[2023-05-10] MEDS ORDERED: DOCUSATE SODIUM 100 MG CAPSULE PO PRN (09:45)
[2023-05-10] MEDS ORDERED: PETROLATUM,WHITE 28 GM JELLY TP PRN (09:45)
[2023-05-10] MEDS ORDERED: BENZOCAINE/MENTHOL LOZENGE PO PRN (09:45)
[2023-05-10] MEDS ORDERED: LOPERAMIDE HCL 2 MG CAPSULE PO PRN (09:45)
[2023-05-10 20:13] VITALS: BP 101/60; PULSE 62; RESP 17; TEMP 97; O2SAT 97
[2023-05-11 09:17] VITALS: BP 112/64; PULSE 81; RESP 16; TEMP 97.3; O2SAT 97
[2023-05-11] MEDS: LORazepam 2 MG TABLET PO PRN (09:20)
[2023-05-11 21:45] VITALS: BP 102/72; PULSE 17; RESP 17; TEMP 97.6; O2SAT 99
[2023-05-12 08:30] VITALS: BP 103/67; PULSE 90; RESP 16; TEMP 97.8; O2SAT 100
[2023-05-12] MEDS: QUEtiapine FUMARATE 25 MG TABLET PO SCH (17:13)
[2023-05-12 20:21] VITALS: BP 109/76; PULSE 82; RESP 17; TEMP 97.7
[2023-05-13 08:11] VITALS: BP 116/66; PULSE 76; RESP 16; TEMP 97.9; O2SAT 99
[2023-05-13] MEDS: QUEtiapine FUMARATE 25 MG TABLET PO SCH ×2 (08:28→16:31)
[2023-05-13] MEDS: ESCITALOPRAM OXALATE 10 MG TABLET PO SCH (08:28)
[2023-05-13 20:20] VITALS: BP 98/67; PULSE 75; RESP 18; TEMP 96.2; O2SAT 99
[2023-05-13] MEDS: LORazepam 2 MG TABLET PO PRN (21:25)
[2023-05-14 08:09] VITALS: BP 119/73; PULSE 79; RESP 18; TEMP 97.6; O2SAT 97
[2023-05-14] MEDS: ESCITALOPRAM OXALATE 10 MG TABLET PO SCH (08:09)
[2023-05-14] MEDS: QUEtiapine FUMARATE 25 MG TABLET PO SCH ×2 (08:09→16:22)
[2023-05-14] MEDS ORDERED: MELATONIN 5 MG TABLET PO PRN (19:00)
[2023-05-15 00:18] VITALS: RESP 16
[2023-05-15 08:40] VITALS: BP 98/67; PULSE 82; RESP 18; TEMP 97.3; O2SAT 97
[2023-05-15] MEDS: ESCITALOPRAM OXALATE 20 MG TABLET PO SCH (09:35)
[2023-05-15] MEDS: QUEtiapine FUMARATE 25 MG TABLET PO SCH ×2 (09:35→16:55)
[2023-05-16] VITALS: BP 128/78; PULSE 86; RESP 18; TEMP 97.8
[2023-05-16 08:49] VITALS: BP 100/64; PULSE 80; RESP 17; TEMP 97.9; O2SAT 100
[2023-05-16] MEDS: QUEtiapine FUMARATE 25 MG TABLET PO SCH ×2 (09:03→16:23)
[2023-05-16] MEDS: ESCITALOPRAM OXALATE 20 MG TABLET PO SCH (09:03)
[2023-05-16 21:36] VITALS: BP 99/64; PULSE 70; RESP 18; TEMP 98.2; O2SAT 99
[2023-05-17] MEDS: ESCITALOPRAM OXALATE 20 MG TABLET PO SCH (08:07)
[2023-05-17] MEDS: QUEtiapine FUMARATE 25 MG TABLET PO SCH ×2 (08:07→16:03)
[2023-05-17] MEDS: LORazepam 2 MG TABLET PO PRN (08:08)
[2023-05-17 08:26] VITALS: BP 108/69; PULSE 77; RESP 16; TEMP 97.6; O2SAT 99
[2023-05-17 21:40] VITALS: BP 97/62; PULSE 67; RESP 18; TEMP 98.2; O2SAT 98
[2023-05-18] MEDS: ESCITALOPRAM OXALATE 20 MG TABLET PO SCH (08:09)
[2023-05-18] MEDS: QUEtiapine FUMARATE 25 MG TABLET PO SCH (08:09)
[2023-05-18 08:14] VITALS: BP 100/65; PULSE 82; RESP 16; TEMP 98; O2SAT 100
[2023-05-18] MEDS ORDERED: QUET25TA PO (12:54)
== END 2023-05-18 13:30 | disposition home or self-care (01) | DRG 750 ==
LOC: EMS 16:15 → B3A 21:35
PROVIDERS: ADMIT Psychiatry & Neurology Psychiatry; ATTEND Psychiatry & Neurology Psychiatry
DX: F25.9 Schizoaffective disorder, unspecified (principal); F31.9 Bipolar disorder, unspecified; F41.9 Anxiety disorder, unspecified; G47.00 Insomnia, unspecified; K21.9 Gastro-esophageal reflux disease without esophagitis; Z20.822 Contact with and (suspected) exposure to COVID-19; K59.00 Constipation, unspecified; Z79.899 Other long term (current) drug therapy
CPT/HCPCS: 80053; 80307; 85025; 99285; G0480; J1200; J1630; J2060

== ENCOUNTER 2023-08-16 18:14 | Emergency (ER) | payer MEDICAID ==
[~2023-08-16] VITALS: Ht 167.6 cm; Wt 68.0 kg
[~2023-08-16 18:14] MED LIST changes: -BUSP5TAB20 PO; -QUET25TA36 PO
[2023-08-16 19:03] VITALS: BP 110/76; PULSE 80; RESP 20; TEMP 97.9
[2023-08-16 19:22] LABS: BASOPHILS % (AUTO) 0.6 % (0.0-2.0); EOSINOPHILS % (AUTO) 0.6 % (1.0-6.0); HEMATOCRIT 40.5 % (36-46); LYMPHOCYTES # (AUTO) 1.8 K/uL (1.0-4.8); LYMPHOCYTES % (AUTO) 15.4 % (22.0-44.0); MEAN CORPUSCULAR HEMOGLOBIN 27.9 pg (26.0-34.0); MEAN CORPUSCULAR HGB CONC 32.2 G/dL (31.0-37.0); MEAN CORPUSCULAR VOLUME 87 fL (80-100); MONOCYTES # (AUTO) 0.6 K/uL (0.1-1.0); MONOCYTES % (AUTO) 4.8 % (2.0-9.0); NEUTROPHILS # (AUTO) 9.4 K/uL (1.8-7.7); NEUTROPHILS % (AUTO) 78.6 % (40.0-70.0); PLATELET COUNT (AUTO) 406 K/uL (150-450); RED BLOOD CELL COUNT(AUTO) 4.67 MIL/uL (4.00-5.20); RED CELL DISTRIBUTION WIDTH 14.9 % (11.5-14.5); WHITE BLOOD COUNT (AUTO) 11.9 K/uL (4.5-11.0)
[2023-08-16 19:28] LABS: ANION GAP 10 mmol/L (8-16); CALCIUM, TOTAL 9.1 mg/dL (8.8-10.5); CARBON DIOXIDE 29 mmol/L (22-29); CHLORIDE 103 mmol/L (98-107); CREATININE 0.94 mg/dL (0.60-1.30); GLOMERULAR FILTR. RATE CALC > 60 mL/min (>60); GLUCOSE,RANDOM 109 mg/dL (70-110); SODIUM SERUM 142 mmol/L (136-145); UREA NITROGEN, BLOOD 22 mg/dL (7-18)
[2023-08-16 19:34] LABS: ALANINE AMINOTRANSFERASE 27 U/L (12-78); ALBUMIN 3.9 g/dL (3.4-5.0); ALKALINE PHOSPHATASE 235 U/L (46-116); ASPARTATE AMINOTRANSFERASE 30 U/L (15-37); BILIRUBIN,TOTAL 0.4 mg/dL (0.1-1.0); TOTAL PROTEIN, SERUM 8.5 g/dL (6.4-8.2)
[2023-08-16 19:43] LABS: ALCOHOL, BLOOD (SERUM) < 3 mg/dL (0-10)
== END 2023-08-16 20:13 | disposition still patient (30) ==
LOC: EMS 18:18
DX: F69 Unspecified disorder of adult personality and behavior (principal); F25.9 Schizoaffective disorder, unspecified; F32.A Depression, unspecified; F10.90 Alcohol use, unspecified, uncomplicated; F12.90 Cannabis use, unspecified, uncomplicated; F15.90 Other stimulant use, unspecified, uncomplicated; Y90.9 Presence of alcohol in blood, level not specified
CPT/HCPCS: 99285; 80053; 84703; 85025; G0480

== ENCOUNTER 2023-08-22 13:02 | Emergency (ER) | payer MEDICAID ==
[~2023-08-22] VITALS: Ht 177.8 cm; Wt 79.0 kg
[2023-08-22 13:10] VITALS: BP 115/76; PULSE 82; RESP 16; TEMP 98.3
== END 2023-08-22 16:49 | disposition left against medical advice (07) ==
LOC: EMS 13:02
DX: R53.1 Weakness (principal); Z53.21 Procedure and treatment not carried out due to patient leaving prior to being seen by health care provider

== ENCOUNTER 2023-08-23 10:52 | Emergency (ER) | payer MEDICAID ==
[~2023-08-23] VITALS: Ht 167.6 cm; Wt 68.2 kg
[2023-08-23 11:02] VITALS: TEMP 98.4
[2023-08-23 11:24] LABS: BASOPHILS % (AUTO) 0.9 % (0.0-2.0); EOSINOPHILS % (AUTO) 0.4 % (1.0-6.0); HEMOGLOBIN 11.5 g/dL (12.0-16.0); LYMPHOCYTES # (AUTO) 2.5 K/uL (1.0-4.8); LYMPHOCYTES % (AUTO) 19.6 % (22.0-44.0); MEAN CORPUSCULAR HEMOGLOBIN 28.4 pg (26.0-34.0); MEAN CORPUSCULAR HGB CONC 32.8 G/dL (31.0-37.0); MEAN CORPUSCULAR VOLUME 87 fL (80-100); MONOCYTES # (AUTO) 1.1 K/uL (0.1-1.0); MONOCYTES % (AUTO) 8.6 % (2.0-9.0); NEUTROPHILS # (AUTO) 9.2 K/uL (1.8-7.7); NEUTROPHILS % (AUTO) 70.5 % (40.0-70.0); PLATELET COUNT (AUTO) 362 K/uL (150-450); RED BLOOD CELL COUNT(AUTO) 4.04 MIL/uL (4.00-5.20); RED CELL DISTRIBUTION WIDTH 14.8 % (11.5-14.5)
[2023-08-23] MEDS: HALOPERIDOL 5 MG TABLET PO ONE (11:30)
[2023-08-23] MEDS: LORazepam 2 MG TABLET PO ONE (11:30)
[2023-08-23 11:34] LABS: ANION GAP 15 mmol/L (8-16); CALCIUM, TOTAL 8.9 mg/dL (8.8-10.5); CARBON DIOXIDE 24 mmol/L (22-29); CHLORIDE 101 mmol/L (98-107); CREATININE 1.01 mg/dL (0.60-1.30); GLOMERULAR FILTR. RATE CALC 59 mL/min (>60); GLUCOSE,RANDOM 70 mg/dL (70-110); POTASSIUM 3.4 mmol/L (3.5-5.1); SODIUM SERUM 140 mmol/L (136-145); UREA NITROGEN, BLOOD 29 mg/dL (7-18)
[2023-08-23 11:39] LABS: ALANINE AMINOTRANSFERASE 46 U/L (12-78); ALBUMIN 3.6 g/dL (3.4-5.0); ALKALINE PHOSPHATASE 182 U/L (46-116); ASPARTATE AMINOTRANSFERASE 66 U/L (15-37); BILIRUBIN,TOTAL 0.9 mg/dL (0.1-1.0)
[2023-08-23] MEDS: DiphenhydrAMINE HCL 50 MG/ML VIAL IM ONE (11:57)
[2023-08-23] MEDS: HALOPERIDOL LACTATE 5 MG/ML VIAL IM ONE (11:58)
[2023-08-23 12:03] LABS: ALCOHOL, BLOOD (SERUM) < 3 mg/dL (0-10)
[2023-08-23 14:00] VITALS: BP 109/79; PULSE 72; RESP 14
== END 2023-08-23 16:28 | disposition home or self-care (01) ==
LOC: EMS 10:55
DX: F41.9 Anxiety disorder, unspecified (principal); F15.10 Other stimulant abuse, uncomplicated; I10 Essential (primary) hypertension; F22 Delusional disorders; F12.90 Cannabis use, unspecified, uncomplicated; Z79.899 Other long term (current) drug therapy
CPT/HCPCS: 99284; 80053; 85025; 36415; 96372; G0480; J1200; J1630

== ENCOUNTER 2023-08-23 23:08 | Emergency (ER) | payer MEDICAID ==
[~2023-08-23] VITALS: Ht 167.6 cm; Wt 68.2 kg
[2023-08-23 23:08] VITALS: TEMP 98.4
[2023-08-23] MEDS ORDERED: QUEtiapine FUMARATE 100 MG TABLET PO ONE (23:45)
[2023-08-24] MEDS: QUEtiapine FUMARATE 25 MG TABLET PO ONE (00:07)
[2023-08-24 06:05] VITALS: BP 118/71; PULSE 82; RESP 17
== END 2023-08-24 06:57 | disposition home or self-care (01) ==
LOC: EMS 23:08
DX: F25.1 Schizoaffective disorder, depressive type (principal); F15.10 Other stimulant abuse, uncomplicated; I10 Essential (primary) hypertension; F12.90 Cannabis use, unspecified, uncomplicated; Z59.00 Homelessness unspecified; Z79.899 Other long term (current) drug therapy
CPT/HCPCS: 99283

== ENCOUNTER 2023-09-02 09:42 | Emergency (ER) | payer MEDICAID ==
[~2023-09-02] VITALS: Ht 167.6 cm; Wt 59.0 kg
[2023-09-02] MEDS: LORazepam 1 MG TABLET PO ONE (12:05)
[2023-09-02 12:22] VITALS: TEMP 99
[2023-09-02 14:05] VITALS: BP 103/61; PULSE 76; RESP 17
== END 2023-09-02 14:26 | disposition home or self-care (01) ==
LOC: EMS 09:46
DX: F41.9 Anxiety disorder, unspecified (principal); I10 Essential (primary) hypertension; F32.A Depression, unspecified; F20.9 Schizophrenia, unspecified; F12.90 Cannabis use, unspecified, uncomplicated; F15.90 Other stimulant use, unspecified, uncomplicated
CPT/HCPCS: 99283

== ENCOUNTER 2023-09-02 19:48 | Emergency (ER) | payer MEDICAID ==
[~2023-09-02] VITALS: Ht 167.6 cm; Wt 57.3 kg
[2023-09-02 20:28] VITALS: BP 107/67; PULSE 84; RESP 16; TEMP 98
[2023-09-02] MEDS: ACETAMINOPHEN 500 MG TABLET PO ONE (22:32)
== END 2023-09-02 22:35 | disposition home or self-care (01) ==
LOC: EMS 19:53
DX: F25.9 Schizoaffective disorder, unspecified (principal); F41.9 Anxiety disorder, unspecified; M79.672 Pain in left foot; M79.671 Pain in right foot; I10 Essential (primary) hypertension; F32.A Depression, unspecified; F12.90 Cannabis use, unspecified, uncomplicated; F15.90 Other stimulant use, unspecified, uncomplicated; Z76.5 Malingerer [conscious simulation]; Z59.00 Homelessness unspecified
CPT/HCPCS: 99282; Z7502; Z7610

== ENCOUNTER 2023-09-04 01:42 | Emergency (ER) | payer MEDICAID ==
[~2023-09-04] VITALS: Ht 167.6 cm; Wt 57.7 kg
[2023-09-04 09:55] VITALS: TEMP 97.5
[2023-09-04] MEDS: KETOROLAC TROMETHAMINE 60 MG/2 ML VIAL IM ONE (13:56)
[2023-09-04 14:59] VITALS: BP 115/73; PULSE 70; RESP 16
== END 2023-09-04 15:27 | disposition home or self-care (01) ==
LOC: EMS 01:43
DX: F25.9 Schizoaffective disorder, unspecified (principal); M25.552 Pain in left hip; F41.9 Anxiety disorder, unspecified; F32.A Depression, unspecified; I10 Essential (primary) hypertension; F12.90 Cannabis use, unspecified, uncomplicated; F15.90 Other stimulant use, unspecified, uncomplicated; F10.90 Alcohol use, unspecified, uncomplicated; Y90.9 Presence of alcohol in blood, level not specified
CPT/HCPCS: 99285; 96372; J1885

== ENCOUNTER 2023-09-09 20:07 | Emergency (ER) | payer MEDICAID ==
[~2023-09-09] VITALS: Ht 165.1 cm; Wt 57.7 kg
[2023-09-09 22:55] VITALS: BP 124/82; PULSE 72; RESP 16; TEMP 97.7
[2023-09-10] MEDS ORDERED: BACITRACIN 28 GM OINTMENT TP ONE (01:00)
[2023-09-10] MEDS: ACETAMINOPHEN 500 MG TABLET PO ONE (01:12)
== END 2023-09-10 03:48 | disposition home or self-care (01) ==
LOC: EMS 20:19
DX: M79.672 Pain in left foot (principal); M79.671 Pain in right foot; F41.9 Anxiety disorder, unspecified; F32.A Depression, unspecified; F20.9 Schizophrenia, unspecified; I10 Essential (primary) hypertension; F12.90 Cannabis use, unspecified, uncomplicated; F15.90 Other stimulant use, unspecified, uncomplicated; Z59.00 Homelessness unspecified
CPT/HCPCS: 99283

== ENCOUNTER 2024-10-15 17:07 | Emergency (ER) | payer MEDICAID ==
[~2024-10-15] VITALS: Ht 167.6 cm; Wt 63.6 kg
[2024-10-15 22:18] VITALS: BP 126/69; PULSE 89; RESP 22; TEMP 97.9; O2SAT 97
== END 2024-10-16 00:07 | disposition home or self-care (01) ==
LOC: EMS 17:07
DX: F10.129 Alcohol abuse with intoxication, unspecified (principal); F12.90 Cannabis use, unspecified, uncomplicated; F20.9 Schizophrenia, unspecified; F17.210 Nicotine dependence, cigarettes, uncomplicated; F15.10 Other stimulant abuse, uncomplicated; Z59.00 Homelessness unspecified; Z79.899 Other long term (current) drug therapy; Y90.9 Presence of alcohol in blood, level not specified
CPT/HCPCS: 99283; Z7502